=== PATIENT | male | born 2000 | race Two or more races ===

== ENCOUNTER 2022-02-07 11:59 | Emergency (ER) | payer SELFPAY ==
[~2022-02-07] VITALS: Ht 167.6 cm; Wt 70.0 kg
[2022-02-07 12:02] VITALS: BP 118/57
--- NOTE | 2022-02-07 15:32 | NUR ---
Pt is unable to wait, states that he needs to leave. Encouraged to stay to wait for the radiologist to interpret the xray however he declined and decided to leave. [employer] OPER[employer] Shannan aware. Pt ambulated off the unit in stable condition.
== END 2022-02-07 15:37 | disposition home or self-care (01) ==
LOC: ER 12:00
DX: R07.81 Pleurodynia (principal); R10.9 Unspecified abdominal pain; Z72.89 Other problems related to lifestyle
CPT/HCPCS: 71100; 99283